=== PATIENT | female | born 1980 | race Two or more races ===

== ENCOUNTER 2017-04-13 01:20 | Emergency (ER) | payer OTHER ==
[~2017-04-13] VITALS: Ht 157.5 cm; Wt 69.9 kg
[~2017-04-13 01:20] MED LIST: DIAZ5TAB PO
[2017-04-13 02:40] VITALS: BP 116/60
[2017-04-13] MEDS ORDERED: IBUPROFEN 400 MG TABLET ONE (03:10)
[2017-04-13] MEDS: IBUPROFEN 400 MG TABLET PO ONE (03:15)
--- NOTE | 2017-04-13 03:16 | NUR ---
refused motrin PO
--- NOTE | 2017-04-13 03:21 | NUR ---
no acute distress; x-ray done at bedside
== END 2017-04-13 03:34 | disposition home or self-care (01) ==
LOC: ER 01:26 → EDBD 01:26 → ER 03:34
DX: G89.29 Other chronic pain (principal); M25.561 Pain in right knee
CPT/HCPCS: 73564-TC; A4606; Z7610

== ENCOUNTER 2020-05-07 15:27 | Emergency (ER) | payer SELFPAY ==
[~2020-05-07] VITALS: Ht 157.5 cm; Wt 68.9 kg
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
--- NOTE | 2020-05-07 16:23 | NUR ---
dr son at bedside for eval.
[2020-05-07] MEDS ORDERED: MORPHINE SULFATE INJ 2 MG/ML DISP.SYRIN ONE (16:36)
[2020-05-07] MEDS ORDERED: MORPHINE SULFATE INJ 4 MG/ML DISP.SYRIN ONE (16:36)
--- NOTE | 2020-05-07 16:52 | NUR ---
NO ADVERSE RXN NOTED,VERBALIZED UNDERSTANDING OF ACI, D/C TO WR,AMBULATORY,STEADY GAIT
[2020-05-07 16:54] VITALS: BP 116/75
[2020-05-07] MEDS ORDERED: MORPHINE SULFATE INJ 10 MG/ML DISP.SYRIN IM ONE (17:00)
== END 2020-05-07 16:54 | disposition home or self-care (01) ==
LOC: ER 15:35
DX: M54.6 Pain in thoracic spine (principal); M54.5 Low back pain; V49.69XA Unspecified car occupant injured in collision with other motor vehicles in traffic accident, initial encounter; Y93.89 Activity, other specified; Y92.89 Other specified places as the place of occurrence of the external cause; Y99.8 Other external cause status
CPT/HCPCS: 96372; 99283; J2270 ×2

== ENCOUNTER 2020-05-10 18:21 | Emergency (ER) | payer SELFPAY ==
[~2020-05-10] VITALS: Ht 157.5 cm; Wt 68.9 kg
[2020-05-10 18:37] VITALS: BP 112/54
--- NOTE | 2020-05-10 18:53 | NUR ---
URINE SPECIMEN COLLECTED AND SENT TO LAB.
--- NOTE | 2020-05-10 19:19 | NUR ---
Patient refused to sign paperwork. Patient did not want prescriptions (800mg IBUPROFEN). Patient is ambulatory with a steady gait.
== END 2020-05-10 19:22 | disposition home or self-care (01) ==
LOC: ER 18:25
DX: G89.29 Other chronic pain (principal); F60.89 Other specific personality disorders; M54.5 Low back pain; M54.6 Pain in thoracic spine; Z76.5 Malingerer [conscious simulation]; Z79.899 Other long term (current) drug therapy